=== PATIENT | male | born 1945 | race Caucasian/White ===

== ENCOUNTER 2018-12-30 17:06 | Emergency (ER) | payer MEDICARE, OTHER ==
[~2018-12-30] VITALS: Ht 182.9 cm; Wt 121.3 kg
[2018-12-30 17:09] VITALS: BP 153/78
[2018-12-30] MEDS ORDERED: LISI1TAB3 PO (18:05)
[2018-12-30] MEDS ORDERED: ALLO300T PO (18:05)
--- NOTE | 2018-12-30 18:37 | NUR ---
Patient/Caregiver given discharge instructions and they have confirmed that they understand the instructions. Patient ambulatory with steady gait.
== END 2018-12-30 18:40 | disposition home or self-care (01) ==
LOC: ED 18:30
DX: S53.432A Radial collateral ligament sprain of left elbow, initial encounter (principal); I10 Essential (primary) hypertension; M10.9 Gout, unspecified; X58.XXXA Exposure to other specified factors, initial encounter; Y93.89 Activity, other specified; Y92.098 Other place in other non-institutional residence as the place of occurrence of the external cause; Y99.8 Other external cause status
CPT/HCPCS: 99283